=== PATIENT | male | born 1945 | race Caucasian/White ===

== ENCOUNTER 2018-08-30 10:30 | Inpatient (IN) ==
[2018-08-30 12:02] LABS: INFLUENZA A NEGATIVE (NEGATIVE); INFLUENZA B NEGATIVE (NEGATIVE)
[2018-08-30 12:07] LABS: BASO# 0.02 X1000 (0.0-0.2); BASO% 0.2 % (0.0-0.8); EOS# 0.11 X1000 (0.0-0.7); HEMATOCRIT 41.7 % (42.0-52.0); HEMOGLOBIN 13.5 g/dL (14.0-18.0); IMM GRAN# 0.02 X1000 (0.0-0.04); IMM GRAN% 0.2 % (0.0-0.5); LYMPH# 1.02 X1000 (1.2-3.4); LYMPH% 8.9 % (20.5-51.1); MCH 27.1 PG (27-31); MCHC 32.4 g/dL (33-37); MCV 83.7 FL (81-99); MONO# 1.06 X1000 (0.11-0.59); MONO% 9.3 % (1.7-9.3); MPV 11.2 FL (7.4-10.4); NEUT# 9.18 X1000 (1.4-6.5); NEUT% 80.4 % (42.2-75.2); PLT 153 X1000 (130-400); RBC 4.98 XMIL (4.7-6.1); RDW 13.3 % (11.5-14.5); WBC 11.41 X1000 (4.8-10.8)
[2018-08-30 12:15] LABS: BILIRUBIN URINE NEGATIVE (NEGATIVE); BLOOD URINE 2+ (NEGATIVE); CLARITY CLEAR (CLEAR); COLOR YELLOW; KETONE URINE TRACE mg/dL (NEGATIVE); LEUKOCYTES URINE TRACE (NEGATIVE); NITRITE URINE NEGATIVE (NEGATIVE); PROTEIN URINE 2+(100 mg/dL) mg/dL (NEGATIVE); UROBILINOGEN URINE NORMAL
[2018-08-30 12:16] LABS: URINE BACTERIA 1+ /HFP; URINE EPITHELIAL CELLS <10 /HPF (<10); URINE SOURCE CLEAN CATCH; URINE WBC <10 /HPF (<10)
[2018-08-30 12:27] LABS: INR 1.09; PROTIME 14.7 Seconds (11.0-16.0)
--- NOTE | 2018-08-30 12:31 | Diag Imaging Result Doc PS360 ---
CHEST-2 VIEWS - 08/30/2018 INDICATION: Congestion- possible sepsis COMPARISON: 03/14/2015 FINDINGS: There is trace nonspecific infiltrate or atelectasis in the left lower lobe with partial loss of the hemidiaphragm. Heart size remains normal. Stable sternotomy wires. No pneumothorax or pleural effusion. IMPRESSION: Faint left lower lobe infiltrate consistent with pneumonia. Electronically signed by Bobo Acosta 08/30/2018 12:29 PM
[2018-08-30 12:33] LABS: ALBUMIN 3.5 g/dL (3.5-5.0); CALCIUM 9.3 mg/dL (8.8-10.2); CREATININE 1.2 mg/dL (0.7-1.2); POTASSIUM 4.1 mmol/L (3.5-5.1); TOTAL BILIRUBIN 0.7 mg/dL (0.20-1.00); TOTAL PROTEIN 6.5 g/dL (6.3-8.3)
[2018-08-30] MEDS ORDERED: ZITHROMAX PO ONE (13:05)
[2018-08-30] MEDS ORDERED: DUONEB (A & A) INH ONE (13:05)
[2018-08-30] MEDS ORDERED: ROCEPHIN 1 GM in NS 50 ML IV ONE (13:05)
--- NOTE | 2018-08-30 13:22 | PROVIDER DOCUMENTATION ---
This chart was entered by Lina Fletcher Scribe, acting as scribe for Keven David MD. HPI-Respiratory General - General Chief Complaint: Possible Sepsis-P Stated Complaint: FLU SX Time Seen by Provider: 08/30/18 12:55 Source: patient Allergies/Adverse Reactions: Patient Allergies Allergy/AdvReac Type Severity Reaction Status Date / Time No Known Allergies Allergy Verified 12/25/17 00:23 Home Medications: Home Medication List Medication Instructions Recorded Confirmed Last Taken Type Aspirin 81 mg PO DAILY 03/14/15 12/25/17 Unknown History Metformin [Glucophage] 500 mg PO 4XDAY 03/14/15 12/25/17 Unknown History ATORVAstatin [Lipitor] 1 tab PO DAILY 10/12/17 12/25/17 Unknown History Carvedilol [Coreg] 25 mg PO BID 10/12/17 12/25/17 Unknown History Omeprazole [Prilosec] 40 mg PO DAILY 10/12/17 12/25/17 Unknown History Ramipril 5 mg PO DAILY 10/12/17 12/25/17 Unknown History Methylprednisolone [Medrol Dosepak] 4 mg PO DIRECTED 5 Days #1 12/25/17 Unknown Rx package Ranitidine HCl [Zantac] 150 mg PO BID 5 Days #20 tablet 12/25/17 Unknown Rx - History of Present Illness-Resp Nature of Presenting Problem: Pt sts that symptoms of ongoing SOB, fever and productive cough have been present for the last 3 weeks. He sts that he was trying to "tough it out" and woke up today feeling worse and decided to go to the urgent care, there he was told that he had a lowe pulse ox level of 86 and was referred to go to the ED for further evaluation. Quality of Pain: reports: none. denies: aching, pressure Severity in ED: reports: mild Onset/Duration: reports: other (3 weeks) Timing: reports: still present Exposure: reports: unknown cause Cough Quality/Degree: reports: moderate, productive cough Episode Frequency: no prior episodes Current Respiratory Medication Therapy: Initiated none Modifying Factors: improves with: nothing Associated Symptoms: reports: cough, fever/chills, shortness of breath, short of breath. denies: chest pain/soreness, dizziness, earache, headache, nasal congestion, wheezing Similar Symptoms Previously?: No Recently seen or treated by another doctor?: No Review of Systems - Adult - REVIEW OF SYSTEMS - ADULT Constitutional: reports: chills, fever Eyes: reports: no symptoms reported Ears, Nose, Mouth & Throat: denies: ear discharge, sinus problem, throat pain, throat swelling Cardiovascular: denies: chest pain, edema Respiratory: reports: no symptoms reported, cough, shortness of breath. denies : wheezing Gastrointestinal: reports: no symptoms reported. denies: abdominal pain, diarrhea, vomiting Genitourinary: reports: no symptoms reported. denies: dysuria, discharge Musculoskeletal: reports: no symptoms reported Integumentary: reports: no symptoms reported Neurological: reports: no symptoms reported. denies: dizziness/vertigo, headache/migraines Psychiatric: reports: no symptoms reported Endocrine: reports: no symptoms reported Hematologic/Lymphatic: reports: no symptoms reported Allergic/Immunologic: reports: no symptoms reported. denies: allergic reactions All Other Systems: Reviewed and Negative Past History - Adult - PAST MEDICAL HISTORY-ADULT Review of Records: reports: Old Records Reviewed, Nursing Assessment Review, Medications Reviewed, Social history reviewed & non-contributory. Major Childhood Illnesses: reports: denies history Cardiovascular: reports: cardiac disease, HTN, hyperlipidemia Respiratory: reports: denies history Gastrointestinal: reports: GERD Obstetrical/Gynecological: reports: denies history Genitourinary: reports: chronic UTI's, prostate cancer Musculoskeletal: reports: denies history Neurological: reports: denies history Endocrine/Immune: reports: Diabetes Other Conditions: reports: denies history - PRIOR SURGERIES/PROCEDURES Surgical/Procedure History: reports: other (heart, GERD) - IMMUNIZATION STATUS Childhood Immunizations: See Nurse Assessment Flu Vaccine: See Nurse Assessment - FAMILY HISTORY Family History: reviewed, not pertinent - SOCIAL HISTORY Smoking: denies, non-smoker Substance Use: none/never Alcohol Use Frequency: never Living Situation: family Physical Exam-General - PHYSICAL EXAM-ADULT Initial Vital Signs Reviewed: Yes - CONSTITUTIONAL General Appearance: appears well, alert, no apparent distress - EYES Eyes: PERRL/EOMI - HEAD, EARS, NOSE, MOUTH & THROAT HENMT: normocephalic/atraumatic, moist mucous membranes, normal ENT inspection, TMs normal. negative: frontal tenderness, maxillary tenderness - NECK Neck: non-tender, supple - RESPIRATORY Respiratory: chest non-tender, normal breath sounds, no pleuratic chest pain, no respiratory distress, no accessory muscle use, rales (Course Rales at bilateral bases). negative: decreased breath sounds, accessory muscle use, rhonchi, wheezing - CARDIOVASCULAR Cardiovascular: normal peripheral pulses, regular rate, rhythm, no edema, no gallop, no JVD, no murmur - LYMPHATIC Lymphatic: no adenopathy - MUSCULOSKELETAL Back Exam: normal inspection Extremity: normal range of motion, non-tender, normal gait - SKIN Integumentary: normal color, normal turgor, warm/dry - NEUROLOGIC Neurologic: accreditation specialist II-XII nml as tested, grossly normal, no motor/sensory deficits - PSYCHIATRIC Psych/Mental Status: normal mood/affect, normal thought content, normal thought process, oriented x 3 Progress - PLAN OF CARE/RESULTS Progress/Plan/Lab Results: Vital Signs - 8 hr 08/30/18 10:41 Temperature 99.9 F H Pulse Rate 94 H Respiratory Rate 24 Blood Pressure 149/102 O2 Sat by Pulse Oximetry 92 L Laboratory Results - last 24 hr 08/30/18 08/30/18 08/30/18 11:00 11:30 11:30 WBC 11.41 H RBC 4.98 Hgb 13.5 L Hct 41.7 L MCV 83.7 MCH 27.1 MCHC 32.4 L RDW Std Deviation 13.3 Plt Count 153 MPV 11.2 H Immature Gran % (Auto) 0.2 Neut % (Auto) 80.4 H Lymph % (Auto) 8.9 L [place] % (Auto) 9.3 Eos % (Auto) 1.0 Baso % (Auto) 0.2 Immature Gran # (Auto) 0.02 Neut # (Auto) 9.18 H Lymph # (Auto) 1.02 L [place] # (Auto) 1.06 H Eos # (Auto) 0.11 Baso # (Auto) 0.02 PT INR PTT (Actin FS) Sodium 142 Potassium 4.1 Chloride 104 Carbon Dioxide 22 L Anion Gap 16 BUN 16 Creatinine 1.2 Estimated GFR/1.73 m2 59 BUN/Creatinine Ratio 13 Glucose 192 H Calculated Osmolality 290 Calcium 9.3 Magnesium Total Bilirubin 0.70 AST 22 ALT 23 Alkaline Phosphatase 83 Creatine Kinase 75 Troponin T Total Protein 6.5 Albumin 3.5 Globulin 3.0 Albumin/Globulin Ratio 1.0 Plasma Lactate Urine Source Urine Color Urine Clarity Urine pH Ur Specific Bruce Urine Protein Urine Ketones Urine Blood Urine Nitrite Urine Bilirubin Urine Urobilinogen Urine Microscopic RBC Urine WBC Urine Microscopic WBC Ur Epithelial Cells Urine Bacteria Urine Glucose Influenza A (Rapid) NEGATIVE Influenza B (Rapid) NEGATIVE 08/30/18 08/30/18 08/30/18 11:30 11:30 11:30 WBC RBC Hgb Hct MCV MCH MCHC RDW Std Deviation Plt Count MPV Immature Gran % (Auto) Neut % (Auto) Lymph % (Auto) [place] % (Auto) Eos % (Auto) Baso % (Auto) Immature Gran # (Auto) Neut # (Auto) Lymph # (Auto) [place] # (Auto) Eos # (Auto) Baso # (Auto) PT 14.7 INR 1.09 PTT (Actin FS) 37.0 Sodium Potassium Chloride Carbon Dioxide Anion Gap BUN Creatinine Estimated GFR/1.73 m2 BUN/Creatinine Ratio Glucose Calculated Osmolality Calcium Magnesium Total Bilirubin AST ALT Alkaline Phosphatase Creatine Kinase Troponin T < 0.010 Total Protein Albumin Globulin Albumin/Globulin Ratio Plasma Lactate 1.9 Urine Source Urine Color Urine Clarity Urine pH Ur Specific Bruce Urine Protein Urine Ketones Urine Blood Urine Nitrite Urine Bilirubin Urine Urobilinogen Urine Microscopic RBC Urine WBC Urine Microscopic WBC Ur Epithelial Cells Urine Bacteria Urine Glucose Influenza A (Rapid) Influenza B (Rapid) 08/30/18 08/30/18 11:30 11:34 WBC RBC Hgb Hct MCV MCH MCHC RDW Std Deviation Plt Count MPV Immature Gran % (Auto) Neut % (Auto) Lymph % (Auto) [place] % (Auto) Eos % (Auto) Baso % (Auto) Immature Gran # (Auto) Neut # (Auto) Lymph # (Auto) [place] # (Auto) Eos # (Auto) Baso # (Auto) PT INR PTT (Actin FS) Sodium Potassium Chloride Carbon Dioxide Anion Gap BUN Creatinine Estimated GFR/1.73 m2 BUN/Creatinine Ratio Glucose Calculated Osmolality Calcium Magnesium 1.3 L Total Bilirubin AST ALT Alkaline Phosphatase Creatine Kinase Troponin T Total Protein Albumin Globulin Albumin/Globulin Ratio Plasma Lactate Urine Source CLEAN CATCH Urine Color YELLOW Urine Clarity CLEAR Urine pH 5.0 Ur Specific Bruce 1.020 Urine Protein 2+(100 mg/dL) A Urine Ketones TRACE Urine Blood 2+ A Urine Nitrite NEGATIVE Urine Bilirubin NEGATIVE Urine Urobilinogen NORMAL Urine Microscopic RBC 10-20 A Urine WBC TRACE A Urine Microscopic WBC <10 Ur Epithelial Cells <10 Urine Bacteria 1+ Urine Glucose 1+(100 mg/dL) A Influenza A (Rapid) Influenza B (Rapid) Orders Category Date Time Status Cardiac Monitoring DIRECTED Care 08/30/18 10:52 Active IV Insertion ORDERED Care 08/30/18 10:52 Active Notify MD of + Sepsis Screen NOW Care 08/30/18 10:52 Active Notify Physician As Ordered Care 08/30/18 10:52 Active CHEST-2 VIEWS [RAD] Stat Exams 08/30/18 10:52 Completed BLOOD CULTURE [BLDCUL] Stat Lab 08/30/18 11:37 Ordered CBC WITH DIFF [HEME] Stat Lab 08/30/18 11:30 Completed CK PROFILE [SP CHEM] Stat Lab 08/30/18 11:30 Completed COMPREHENSIVE METABOLIC PANEL [CHEM] Stat Lab 08/30/18 11:[address] Stat Lab 08/30/18 11:00 Completed LACTATE, PLASMA [CHEM] Q3H Lab 08/30/18 11:30 Completed LACTATE, PLASMA [CHEM] Q3H Lab 08/30/18 14:00 Uncollected LACTATE, PLASMA [CHEM] Q3H Lab 08/30/18 17:00 Uncollected MAGNESIUM [CHEM] Stat Lab 08/30/18 11:30 Completed PROTIME WITH INR [COAG] Stat Lab 08/30/18 11:30 Completed PTT [COAG] Stat Lab 08/30/18 11:30 Completed TROPONIN T Stat Lab 08/30/18 11:[address] W/POSS RFLX CULT [URINALYSIS] Stat Lab 08/30/18 11:34 Completed URINE CULTURE [RM] Routine Lab 08/30/18 12:16 Ordered Albuterol 2.5MG/Ipratrop 0.5MG [Duoneb (A & A)] Med 08/30/18 13:05 Discontinued 3 ml INH NOW ONE Azithromycin [Zithromax] Med 08/30/18 13:05 Discontinued 500 mg PO NOW ONE CefTRIAXONE [Rocephin] 1 gm Med 08/30/18 13:05 Active 0.9% Sodium Chloride Inj [Ns] 50 ml IV NOW Aerosol Treatments Routine Oth 08/30/18 13:06 Active Aerosol Treatments Stat Oth 08/30/18 13:06 Active Oxygen Device Stat Oth 08/30/18 10:52 Active Result Diagrams: 08/30/18 11:30 08/30/18 11:30 - XRAY 1 XRAY: Bilateral XRAY Study: Chest Impression: Abnormal (COMPARISON: 03/14/2015 FINDINGS: There is trace nonspecific infiltrate or atelectasis in the left lower lobe with partial loss of the hemidiaphragm. Heart size remains normal. Stable sternotomy wires. No pneumothorax or pleural effusion. IMPRESSION: Faint left lower lobe infiltrate consistent with pneumonia. Electronically signed by Bobo Acosta 08/30/2018 12:29 PM) - CONSULTS/PCP/HOSPITALIST Notification #1 *Consult/PCP/Hospitalist*: Coco Time Discussed: 13:21 Consult Disposition: Admit Departure - Departure Date of Disposition Decision: 08/30/18 Time of Disposition Decision: 13:21 DIAGNOSIS: Hypoxia Pneumonia Qualifiers: Pneumonia type: due to unspecified organism Laterality: left Lung location: lower lobe of lung Qualified Code(s): J18.1 - Lobar pneumonia, unspecified organism Disposition: ADMITTED INPATIENT 09 Certified Medical Emergency: Emergent Condition: Stable Referrals and Follow-Ups: Sandeep Sepulveda MD [Primary Care Provider] - - Critical Care Note This patient required my direct & personal management of CC.: No Attestation - Physician/ DANIEL Attestation Patient care was provided by Advanced Practice Provider:: No The physician spent face to face time with patient:: Yes Advanced Practice Provider documentation review:: Supervising physician onsite and consulted in the evaluation and care of this patient. The physician did have a face to face encounter with the patient. This chart was documented by the indicated scribe, (Lina Fletcher, Jamila) and accurately reflects the services I performed and decisions made by me, Keven David MD, as attested by the provider's signature.
[2018-08-30] MEDS ORDERED: NS 1,000 ML IV ONE (13:24)
[2018-08-30] MEDS: TYLENOL PO PRN (13:45)
[2018-08-30] MEDS: DUONEB (A & A) INH SCH ×2 (15:57→22:31)
[2018-08-30] MEDS: ROCEPHIN 1 GM in NS 50 ML IV SCH (20:34)
[2018-08-31] MEDS: DUONEB (A & A) INH SCH ×4 (03:20→22:56)
[2018-08-31] MEDS ORDERED: MAGNESIUM SULFATE 2 GM/S.W.I. 2 GM/50 ML IVPB IV ONE (07:42)
[2018-08-31 07:58] LABS: HEMATOCRIT 38.2 % (42.0-52.0); HEMOGLOBIN 12.4 g/dL (14.0-18.0); MCH 27.1 PG (27-31); MCHC 32.5 g/dL (33-37); MCV 83.6 FL (81-99); MPV 10.8 FL (7.4-10.4); RBC 4.57 XMIL (4.7-6.1); WBC 10.29 X1000 (4.8-10.8)
--- NOTE | 2018-08-31 08:01 | Diag Imaging Result Doc PS360 ---
CHEST-2 VIEWS - 08/31/2018 INDICATION: SOB COMPARISON: 08/30/2018 FINDINGS: There is new ill-defined infiltrate in the right lower lobe. The left lower lobe appears more clear today. Heart size is normal. No pneumothorax or pleural effusion. IMPRESSION: Right lower lobe infiltrate/pneumonia. Electronically signed by Bobo Acosta 08/31/2018 7:59 AM
[2018-08-31 08:17] LABS: AGAP 15; ALKALINE PHOSPHATASE 79 U/L (32-122); BUN 12 mg/dL (8-22); CALCIUM 8.8 mg/dL (8.8-10.2); CHLORIDE 104 mmol/L (98-107); COSMO 281; ESTIMATED GFR > 60; GLUCOSE 124 mg/dL (70-104); GOT 23 U/L (10-34); GPT 21 U/L (10-44); POTASSIUM 3.6 mmol/L (3.5-5.1); SODIUM 140 mmol/L (136-145); TCO2 21 mmol/L (25-35); TOTAL PROTEIN 6.4 g/dL (6.3-8.3)
--- NOTE | 2018-08-31 08:22 | PROGRESS NOTE ---
DATE: 08/31/2018 SUBJECTIVE: He was admitted for pneumonia. Report from his chest x-ray showed nonspecific infiltrate or atelectasis in the left lower lobe with partial loss of hemidiaphragm. Heart size is normal. Stable sternotomy wires. No pneumothorax or pleural effusions. Faint lower lobe pneumonia was the impression. OBJECTIVE: VITAL SIGNS: Yesterday, he had a temperature of 99. Pulses have been 102-110. Respiratory rate 18. Blood pressure 138/88 and 98 with some MAP. He was on 2 L. LABORATORY DATA: Cultures are pending. Urine and blood. White count 11,410, hematocrit is 41.7, and platelet count is 153,000. Strep flu serologies are negative. Urinalysis 2+ protein, 2+ blood, 10-20 RBC, trace white cells. This seems to be the problem before. Comprehensive was sodium of 142, potassium 4.1, chloride 104, carbon dioxide 22, BUN 16, creatinine 1.2, glucose 192, calcium 9.3, magnesium 1.3. ALT 22, AST 22. CK 75. Troponin 0.01. Lactate 1.3. ASSESSMENT AND PLAN: The patient is on Rocephin and ceftriaxone. He is still coughing up purulent sputum. Appears to be in no distress whatsoever. cc: Sandeep Sepulveda MD
[2018-08-31] MEDS: ROCEPHIN 1 GM in NS 50 ML IV SCH ×2 (10:50→20:35)
[2018-08-31] MEDS: PRILOSEC PO SCH ×2 (12:18→13:50)
[2018-08-31] MEDS: COREG PO SCH ×2 (12:18→20:34)
[2018-08-31] MEDS: ZITHROMAX PO SCH (12:19)
[2018-08-31] MEDS: ASPIRIN PO SCH (12:19)
[2018-08-31] MEDS: GLUCOPHAGE PO SCH ×2 (12:19→16:18)
[2018-08-31] MEDS: PEPCID PO SCH ×2 (16:18→20:35)
[2018-08-31] MEDS: CARAFATE PO PRN ×2 (16:18→20:34)
[2018-08-31] MEDS ORDERED: TYLENOL PM PO PRN (19:47)
[2018-08-31] MEDS: TYLENOL PO PRN (20:34)
[2018-08-31] MEDS: BENADRYL PO PRN (20:35)
[2018-09-01] MEDS: DUONEB (A & A) INH SCH ×4 (03:02→21:43)
[2018-09-01] MEDS: ROCEPHIN 1 GM in NS 50 ML IV SCH ×2 (08:34→20:18)
[2018-09-01] MEDS: ASPIRIN PO SCH (08:34)
[2018-09-01] MEDS: ZITHROMAX PO SCH (08:34)
[2018-09-01] MEDS: COREG PO SCH ×2 (08:34→20:18)
[2018-09-01] MEDS: GLUCOPHAGE PO SCH ×2 (08:34→16:50)
[2018-09-01] MEDS: PEPCID PO SCH ×2 (08:34→20:18)
[2018-09-01 12:56] LABS: BASO# 0.02 X1000 (0.0-0.2); BASO% 0.2 % (0.0-0.8); EOS# 0.39 X1000 (0.0-0.7); EOS% 4.5 % (0.0-10.0); HEMATOCRIT 38.5 % (42.0-52.0); HEMOGLOBIN 12.7 g/dL (14.0-18.0); IMM GRAN# 0.01 X1000 (0.0-0.04); IMM GRAN% 0.1 % (0.0-0.5); LYMPH# 1.52 X1000 (1.2-3.4); LYMPH% 17.6 % (20.5-51.1); MCH 27.7 PG (27-31); MCV 84.1 FL (81-99); MONO# 0.79 X1000 (0.11-0.59); MONO% 9.1 % (1.7-9.3); MPV 10.5 FL (7.4-10.4); NEUT# 5.92 X1000 (1.4-6.5); NEUT% 68.5 % (42.2-75.2); PLT 151 X1000 (130-400); RBC 4.58 XMIL (4.7-6.1); RDW 13.1 % (11.5-14.5); WBC 8.65 X1000 (4.8-10.8)
--- NOTE | 2018-09-01 13:24 | Diag Imaging Result Doc PS360 ---
EXAM: CHEST-2 VIEWS HISTORY: fdc placement TECHNIQUE: Chest two views COMPARISON: 08/31/2018 FINDINGS: Mild worsening in the basilar infiltrates. No cardiomegaly. No vascular distention. No pleural effusions. IMPRESSION: Basilar pneumonia with no interval improvement. Electronically signed by Kenny James 09/01/2018 1:21 PM
--- NOTE | 2018-09-01 18:27 | PROGRESS NOTE ---
DATE: 09/01/2018 OBJECTIVE: Vital Signs: Temperature 98.1 orally. Pulse rate is 89, respiratory rate 18, blood pressure 122/87. His O2 saturation on 2 liters is 95%. HEENT: The patient's tongue and lip are swollen. He has had a problem in the past with the same, initially attributed to an IJEOMA inhibitor and angioedema, but he has continued to have the swelling using multiple different drugs, and we cannot find the exact deal. IMAGING: Today he had a chest x-ray done, 2-view, in the department. Mild worsening of the basilar infiltrates No cardiomegaly and no vascular distention. No pleural effusions. LABORATORY DATA: His microbiology shows that he has a sputum culture that is preliminarily reported as a sparse growth presently. His blood cultures are negative at 48 hours. His urine is growing out E coli that is only resistant to trimethoprim/sulfamethoxazole HOME MEDICATIONS: 1. Metformin 500 p.o. four times a day. 2. Aspirin 81. 3. Coreg 25 b.i.d. 4. Terbinafine. ASSESSMENT/PLAN: He is also taking ceftriaxone and azithromycin for the presumed pneumonia/atelectasis, and as of yet has not had a significant temperature. Chest x-ray suggests that it may be all atelectasis. Will continue the same therapy. I will review the x-rays. cc: Sandeep Sepulveda MD
[2018-09-01] MEDS: TYLENOL PO PRN ×2 (20:18→21:32)
[2018-09-01] MEDS: BENADRYL PO PRN ×2 (20:18→21:32)
[2018-09-01 21:26] LABS: BE 0.2 mmoll (-3.0-3.0); BLOOD TYPE ARTERIAL; HCO3-(ACT) 24.9 mmoll (20.0-26.0); METHB 1.3 % (0.0-1.5); O2(CT) 16.2 mL/dL (15.0-23.0); PCO2(98.6) 33 mmHg (35-45); PO2(98.6) 58 mmHg (60-100); SAMPLE BLOOD; SAO2 92.4 % (95.0-100.0); THB 12.8 g/dL (11.5-17.4); pH(98.6) 7.46 (7.35-7.45)
[2018-09-01 21:33] LABS: ALLEN TEST YES; MODALITY ROOM AIR; O2HB 89.8 % (95.0-99.0)
[2018-09-02] MEDS: DUONEB (A & A) INH SCH ×4 (03:20→23:08)
[2018-09-02] MEDS: ZITHROMAX PO SCH (08:33)
[2018-09-02] MEDS: ASPIRIN PO SCH (08:33)
[2018-09-02] MEDS: ROCEPHIN 1 GM in NS 50 ML IV SCH ×2 (08:33→21:07)
[2018-09-02] MEDS: PEPCID PO SCH ×2 (08:34→21:07)
[2018-09-02] MEDS: GLUCOPHAGE PO SCH ×2 (08:35→16:36)
[2018-09-02] MEDS: COREG PO SCH ×2 (08:35→21:07)
[2018-09-02] MEDS: TYLENOL PO PRN (21:10)
[2018-09-02] MEDS: BENADRYL PO PRN (21:10)
[2018-09-03] MEDS: DUONEB (A & A) INH SCH ×4 (03:31→22:42)
[2018-09-03 06:58] LABS: HEMATOCRIT 39.8 % (42.0-52.0); HEMOGLOBIN 12.7 g/dL (14.0-18.0); MCH 26.8 PG (27-31); MCHC 31.9 g/dL (33-37); MPV 9.8 FL (7.4-10.4); RBC 4.74 XMIL (4.7-6.1); RDW 13.2 % (11.5-14.5); WBC 7.54 X1000 (4.8-10.8)
[2018-09-03 07:15] LABS: AGAP 10; ALBUMIN 3.1 g/dL (3.5-5.0); ALKALINE PHOSPHATASE 94 U/L (32-122); BUN 20 mg/dL (8-22); CALCIUM 9.5 mg/dL (8.8-10.2); CHLORIDE 106 mmol/L (98-107); COSMO 286; CREATININE 1.1 mg/dL (0.7-1.2); ESTIMATED GFR > 60; GLUCOSE 110 mg/dL (70-104); GOT 45 U/L (10-34); GPT 61 U/L (10-44); POTASSIUM 4.6 mmol/L (3.5-5.1); SODIUM 142 mmol/L (136-145); TCO2 25 mmol/L (25-35); TOTAL PROTEIN 6.8 g/dL (6.3-8.3)
--- NOTE | 2018-09-03 07:57 | Diag Imaging Result Doc PS360 ---
CHEST-2 VIEWS - 09/03/2018 INDICATION: PNA; repeat; SOB COMPARISON: 09/01/2018 FINDINGS: Lung volumes are improved. There has been decrease in density of the focal infiltrate at the lateral right lower lobe. Stable peripheral interstitial opacities compatible with mild fibrosis or scarring. Heart size and pulmonary vascularity is normal. IMPRESSION: Slight improvement from prior. Persistent right lower lobe pneumonia. Electronically signed by Bobo Acosta 09/03/2018 7:54 AM
[2018-09-03] MEDS: COREG PO SCH ×2 (08:50→21:32)
[2018-09-03] MEDS: GLUCOPHAGE PO SCH ×2 (08:50→16:29)
[2018-09-03] MEDS: ASPIRIN PO SCH (08:50)
[2018-09-03] MEDS: ROCEPHIN 1 GM in NS 50 ML IV SCH ×2 (08:50→21:32)
[2018-09-03] MEDS: PEPCID PO SCH ×2 (08:50→21:32)
[2018-09-03] MEDS: ZITHROMAX PO SCH (08:50)
[2018-09-03] MEDS: BENADRYL PO PRN (21:31)
[2018-09-03] MEDS: TYLENOL PO PRN (21:32)
[2018-09-04] MEDS: DUONEB (A & A) INH SCH ×2 (03:31→08:29)
[2018-09-04 07:36] VITALS: BP 125/91
[2018-09-04] MEDS: COREG PO SCH (09:08)
[2018-09-04] MEDS: GLUCOPHAGE PO SCH (09:08)
[2018-09-04] MEDS: ZITHROMAX PO SCH (09:08)
[2018-09-04] MEDS: ASPIRIN PO SCH (09:08)
[2018-09-04] MEDS: ROCEPHIN 1 GM in NS 50 ML IV SCH (09:08)
[2018-09-04] MEDS: PEPCID PO SCH (09:08)
[2018-09-04 10:33] LABS: BE 0.3 mmoll (-3.0-3.0); BLOOD TYPE ARTERIAL; METHB 1.4 % (0.0-1.5); O2(CT) 17.3 mL/dL (15.0-23.0); O2HB 91.1 % (95.0-99.0); PCO2(98.6) 38 mmHg (35-45); PO2(98.6) 62 mmHg (60-100); SAMPLE BLOOD; SAO2 94.3 % (95.0-100.0); THB 13.5 g/dL (11.5-17.4); pH(98.6) 7.42 (7.35-7.45)
[2018-09-04 10:38] LABS: ALLEN TEST YES; MODALITY ROOM AIR
--- NOTE | 2018-09-19 11:45 | PROGRESS NOTE ---
DATE: 09/19/2018 OBJECTIVE: Temperature was 98, pulse 92, respiratory rate 18, blood pressure 124/88, O2 saturation was 98%. Cardiovascular: Regular rate and rhythm. Abdomen: Soft. Extremities were negative. He is coughing still, somewhat short of breath, some rhonchi throughout his lung villegas. Continuing to receive his medications. Vital signs are stable. We will continue on current therapies. Chest has some rhonchi. No consolidative findings. cc: Sandeep Sepulveda MD
--- NOTE | 2018-09-19 11:46 | PROGRESS NOTE ---
DATE: 09/02/2018 Temperature was 98, pulse 80, respiratory rate 19, blood pressure 113/80, O2 saturation on 2 L was 94%. His lungs were generally clear. Coughing less. Starting to feel better. No temperature. Plans are probably to send him home tomorrow. cc: Sandeep Sepulveda MD
--- NOTE | 2018-09-19 11:54 | HISTORY AND PHYSICAL ---
HISTORY OF PRESENT ILLNESS: The patient presented to the emergency room with the problem of shortness of breath associated with a fever, productive cough that has been more or less present for 3 weeks. He stated he was just trying to tough it out and woke up this morning feeling worse and decided to go to urgent care. He was told he had a low pulse oximetry level of 86% and was referred to the ED for further evaluation. ALLERGIES: Omeprazole and verapamil. PAST MEDICAL HISTORY: He has a past history of diabetes, dyslipidemia, hypertension, gout, and reflux disease. He has had a bypass. He has history of chronic UTIs and has had prostate cancer. He does have type 2 diabetes. He has had some type of esophageal surgery, heart was bypassed. In the ER, his temperature was 99.9, pulse 94, respiratory rate 24, blood pressure 149/102, O2 saturation 92%. He had a CBC that showed a little bit lowered hematocrit of 41.7, white count was 11,410, platelet count was 153. Comp was normal other than a blood sugar of 192. Flu A and flu B were negative. Cardiac enzymes were negative. Lactate was 1.9. Magnesium was 1.3. Urinalysis with 2+ blood, 2+ protein, 1+ bacteria. While in the ER, he was given some ceftriaxone, azithromycin, albuterol, ipratropium. Chest x-ray was done which showed a nonspecific infiltrate or atelectasis in the lower left lobe with partial loss of the hemidiaphragm. Heart size was normal. Stable sternotomy wires. No pneumo or pleural effusions. Impression was faint lower lobe infiltrate consistent with pneumonia. He was indeed coughing up productive cough, and he was subsequently admitted. REVIEW OF SYSTEMS: He has had some chills associated with fever. No significant weight loss. Eyes are PERRL. EOMs intact. Sclerae clear. Ears, nose and throat: No sinusitis, otitis or pharyngitis. Cardiovascular: Denies chest pain and edema, PND, orthopnea or palpitations. Respiratory: He had some cough and shortness of breath. Denied wheezing. Gastrointestinal: No nausea, vomiting, diarrhea or constipation. : No dysuria, hematuria, polyuria, pyuria or nocturia. Musculoskeletal: No myalgias. No arthralgias. Skin was clear. Neurologic: No focal neurological deficits. No headaches. No dizziness. Psychiatric: Negative. Endocrine: No history of significant thyroid disease. He has history of diabetes. Hematologic: No bleeding or clotting disorder. He does have a history of some gout. Allergies and immunologic: Negative. SOCIAL HISTORY: He is a nonsmoker. No drug use. PHYSICAL EXAMINATION: On admission was fairly unremarkable other than he had some coarse sounds in the bases of his lungs. ASSESSMENT AND PLAN: He is being admitted with possible pneumonia. cc: Sandeep Sepulveda MD
--- NOTE | 2018-09-19 13:08 | DISCHARGE SUMMARY ---
ADMISSION DATE: 08/30/2018 DISCHARGE DATE: 09/04/2018 HISTORY OF PRESENT ILLNESS: This is a patient of mine in the office who presented with a respiratory illness and fever and an infiltrate with mild elevation in his white count, with negative flu markers. He was admitted. His blood cultures were negative. Sputum culture was negative. His urine grew out E. coli. Imaging studies starting on 08/30/2018, he had a faint lower lobe infiltrate consistent with pneumonia. On 08/31/2018, right lower lobe infiltrate and pneumonia. On 09/01/2018, basilar pneumonia with no interval improvement. On 09/03/2018, slight improvement from his prior chest x-ray consistent with pneumonia. The patient was monitored with white counts. He presented with 11,410 white count and was discharged with 7.54 white count. Hematocrits stayed around the low 40s, high 30s. Platelet counts were fine. His initial blood gas showed pH of 7.46, pCO2 of 33, pO2 of 58 on room air. Lactic acid level was 2.9. On 09/04/2018, blood gas showed pH of 7.42, pCO2 of 38, pO2 of 62 on room air. His comp was basically normal outside of slightly elevated blood sugar of 192. Magnesium was a little low at 1.3. Subsequent plasma lactate levels were fine. Urinalysis had 10 to 20 RBCs, trace WBCs, 1+ blood. Serologies were negative. Chest x-ray as reported. He was treated with antibiotic therapy. During the hospitalization, he received his regular medicines including Rocephin and azithromycin. We kept him on that during his stay. He improved. Less pneumonia. He was doing better in general. cc: Sandeep Sepulveda MD
== END 2018-09-04 13:15 | disposition home or self-care (01) | DRG 195 ==
LOC: P.ED 10:30 → P.MEDSURG 14:58
PROVIDERS: ADMIT Internal Medicine; ATTEND Internal Medicine
CPT/HCPCS: 36415; 71020; 71046; 80053; 81001; 82550; 82805; 82948; 83605; 83735; 84484; 85025; 85027; 85610; 85730; 87040; 87070; 87077; 87088; 87186; 87205; 87275; 87276; 87804; 89220; 94640; 94760; 94761; 94799; 96365; 99284; A9270; J0696; J3475; J7030; XXXXX